=== PATIENT | female | born 2000 | race Caucasian/White ===

== ENCOUNTER 2018-01-20 06:56 | Emergency (ER) | payer SELFPAY ==
[2018-01-20] MEDS ORDERED: Sodium Chloride 0.9% 1,000 ML IV ONE (07:33)
[2018-01-20] MEDS ORDERED: Sodium Chloride 0.9% 2.5 ML Syringe FLUSH PRN (07:33)
[2018-01-20] MEDS ORDERED: Sodium Chloride 0.9% 10 ML Syringe FLUSH PRN (07:33)
[2018-01-20] MEDS ORDERED: Ondansetron 4 MG/2 ML SDV IVPUSH ONE (07:33)
--- NOTE | 2018-01-20 07:50 | EDM.PDOC ---
ED HPI GENERAL MEDICAL PROBLEM - General Chief Complaint: Abdominal Pain Stated Complaint: STOMACH PAINS Time Seen by Provider: 01/20/18 07:29 - History of Present Illness INITIAL COMMENTS - FREE TEXT/NARRATIVE: HISTORY AND PHYSICAL: History of present illness: Patient's 17-year-old female presents with concern of abdominal pain nausea and vomiting this is in her epigastrium right upper quadrant and started this morning she denies fever chills denies chest pain cough shortness of breath diarrhea denies vaginal discharge or irregular bleeding denies similar episodes prior Review of systems: As per history of present illness and below otherwise all systems reviewed and negative. Past medical history: As per history of present illness and as reviewed below otherwise noncontributory. Surgical history: As per history of present illness and as reviewed below otherwise noncontributory. Social history: No reported history of drug or alcohol abuse. Family history: As per history of present illness and as reviewed below otherwise noncontributory. Physical exam: HEENT: Atraumatic, normocephalic, pupils reactive, negative for conjunctival pallor or scleral icterus, mucous membranes dry, throat clear, neck supple, nontender, trachea midline. Lungs: Clear to auscultation, breath sounds equal bilaterally, chest nontender. Heart: S1S2, regular, negative for clicks, rubs, or JVD. Abdomen: Soft, nondistended, mild tenderness in epigastric right upper quadrant no rebound no guarding Negative for masses or hepatosplenomegaly. Negative for costovertebral tenderness. Pelvis: Stable nontender. Genitourinary: Deferred. Rectal: Deferred. Extremities: Atraumatic, negative for cords or calf pain. Neurovascular unremarkable. Neuro: Awake, alert, oriented. Cranial nerves II through XII unremarkable. Cerebellum unremarkable. Motor and sensory unremarkable throughout. Exam nonfocal. Diagnostics: CBC CMP and lipase hCG UA ultrasound right upper quadrant influenza screen Therapeutics: Saline 1 L bolus Zofran 4 mg IV Impression: #1 upper abdominal pain with vomiting #2 mild dehydration Definitive disposition and diagnosis as appropriate pending reevaluation and review of above. abdominal Pain Score (Numeric/FACES): 5 - Related Data Allergies Allergy/AdvReac Type Severity Reaction Status Date / Time No Known Allergies Allergy Verified 01/20/18 07:23 Home Meds: Home Meds . [No Known Home Meds] 01/20/18 [History] Past Medical History - Past Health History Medical/Surgical History: Denies Medical/Surgical History Social & Family History - Family History Family Medical History: Noncontributory - Tobacco Use Smoking Status *Q: Never Smoker Second Hand Smoke Exposure: No - Caffeine Use Caffeine Use: Reports: Energy Drinks - Recreational Drug Use Recreational Drug Use: No ED ROS GENERAL - Review of Systems Review Of Systems: ROS reveals no pertinent complaints other than HPI. ED EXAM, GENERAL - Physical Exam Exam: See Below (See dictation) Course - Vital Signs Last Recorded V/S: Last Vital Signs Temp 36.5 C 01/20/18 08:55 Pulse 61 01/20/18 08:55 Resp 16 01/20/18 08:55 BP 118/63 01/20/18 08:55 Pulse Ox 97 01/20/18 08:55 - Orders/Labs/Meds Orders: Active Orders 24 hr Category Date Time Status Abdomen Ltd [US] Stat Exams 01/20/18 07:33 Taken INFLUENZA A+B AG SCREEN [RM] Stat Lab 01/20/18 07:46 Ordered UA W/MICROSCOPIC [URIN] Stat Lab 01/20/18 08:31 Ordered Sodium Chloride 0.9% [Saline Flush] Med 01/20/18 07:33 Active 10 ml FLUSH ASDIRECTED PRN Sodium Chloride 0.9% [Saline Flush] Med 01/20/18 07:33 Active 2.5 ml FLUSH ASDIRECTED PRN Saline Lock Insert [OM.PC] Stat Oth 01/20/18 07:31 Ordered Medication Orders Sodium Chloride (Saline Flush) 10 ml FLUSH ASDIRECTED PRN PRN Reason: Keep Vein Open Sodium Chloride (Saline Flush) 2.5 ml FLUSH ASDIRECTED PRN PRN Reason: Keep Vein Open Labs: Laboratory Tests 01/20/18 01/20/18 01/20/18 Range/Units 07:40 07:40 07:40 WBC 11.07 H (4.0-11.0) K/uL RBC 4.69 (4.30-5.90) M/uL Hgb 13.4 (12.0-16.0) g/dL Hct 41.1 (36.0-46.0) % MCV 87.6 (80.0-98.0) fL MCH 28.6 (27.0-32.0) pg MCHC 32.6 (31.0-37.0) g/dL RDW Std Deviation 40.5 (28.0-62.0) fl RDW Coeff of Nick 13 (11.0-15.0) % Plt Count 313 (150-400) K/uL MPV 9.30 (7.40-12.00) fL Neut % (Auto) 76.9 (48.0-80.0) % Lymph % (Auto) 12.1 L (16.0-40.0) % [place] % (Auto) 9.8 (0.0-15.0) % Eos % (Auto) 0.9 (0.0-7.0) % Baso % (Auto) 0.3 (0.0-1.5) % Neut # (Auto) 8.5 H (1.4-5.7) K/uL Lymph # (Auto) 1.3 (0.6-2.4) K/uL [place] # (Auto) 1.1 H (0.0-0.8) K/uL Eos # (Auto) 0.1 (0.0-0.7) K/uL Baso # (Auto) 0.0 (0.0-0.1) K/uL Nucleated RBC % 0.0 /100WBC Nucleated RBCs # 0 K/uL INR 0.97 Sodium 141 (136-145) mmol/L Potassium 3.5 (3.5-5.1) mmol/L Chloride 105 (98-107) mmol/L Carbon Dioxide 25.2 (21.0-32.0) mmol/L BUN 16 (7.0-18.0) mg/dL Creatinine 1.3 H (0.6-1.0) mg/dL Est Cr Clr Drug Dosing 57.58 mL/min Estimated GFR (MDRD) 52.8 ml/min Glucose 107 H (74-106) mg/dL Calcium 8.8 (8.5-10.1) mg/dL Total Bilirubin 0.3 (0.2-1.0) mg/dL AST 21 (15-37) IU/L ALT 19 (14-63) IU/L Alkaline Phosphatase 86 (46-116) U/L Total Protein 7.3 (6.4-8.2) g/dL Albumin 3.7 (3.4-5.0) g/dL Globulin 3.6 H (2.0-3.5) g/dL Albumin/Globulin Ratio 1.0 L (1.3-2.8) Lipase 124 (73-393) U/L HCG, Qual (NEG) Urine Color Urine Appearance Urine pH (5.0-8.0) Ur Specific [place] (1.001-1.035) Urine Protein (NEGATIVE) mg/dL Urine Glucose (UA) (NEGATIVE) mg/dL Urine Ketones (NEGATIVE) mg/dL Urine Occult Blood (NEGATIVE) Urine Nitrite (NEGATIVE) Urine Bilirubin (NEGATIVE) Urine Urobilinogen (<2.0) EU/dL Ur Leukocyte Esterase (NEGATIVE) Urine RBC (0-2/HPF) Urine WBC (0-5/HPF) Ur Epithelial Cells (NONE-FEW) Urine Bacteria (NEGATIVE) 01/20/18 01/20/18 Range/Units 07:40 08:31 WBC (4.0-11.0) K/uL RBC (4.30-5.90) M/uL Hgb (12.0-16.0) g/dL Hct (36.0-46.0) % MCV (80.0-98.0) fL MCH (27.0-32.0) pg MCHC (31.0-37.0) g/dL RDW Std Deviation (28.0-62.0) fl RDW Coeff of Nick (11.0-15.0) % Plt Count (150-400) K/uL MPV (7.40-12.00) fL Neut % (Auto) (48.0-80.0) % Lymph % (Auto) (16.0-40.0) % [place] % (Auto) (0.0-15.0) % Eos % (Auto) (0.0-7.0) % Baso % (Auto) (0.0-1.5) % Neut # (Auto) (1.4-5.7) K/uL Lymph # (Auto) (0.6-2.4) K/uL [place] # (Auto) (0.0-0.8) K/uL Eos # (Auto) (0.0-0.7) K/uL Baso # (Auto) (0.0-0.1) K/uL Nucleated RBC % /100WBC Nucleated RBCs # K/uL INR Sodium (136-145) mmol/L Potassium (3.5-5.1) mmol/L Chloride (98-107) mmol/L Carbon Dioxide (21.0-32.0) mmol/L BUN (7.0-18.0) mg/dL Creatinine (0.6-1.0) mg/dL Est Cr Clr Drug Dosing mL/min Estimated GFR (MDRD) ml/min Glucose (74-106) mg/dL Calcium (8.5-10.1) mg/dL Total Bilirubin (0.2-1.0) mg/dL AST (15-37) IU/L ALT (14-63) IU/L Alkaline Phosphatase (46-116) U/L Total Protein (6.4-8.2) g/dL Albumin (3.4-5.0) g/dL Globulin (2.0-3.5) g/dL Albumin/Globulin Ratio (1.3-2.8) Lipase (73-393) U/L HCG, Qual NEGATIVE (NEG) Urine Color YELLOW Urine Appearance CLEAR Urine pH 5.5 (5.0-8.0) Ur Specific [place] <= 1.005 (1.001-1.035) Urine Protein NEGATIVE (NEGATIVE) mg/dL Urine Glucose (UA) NEGATIVE (NEGATIVE) mg/dL Urine Ketones NEGATIVE (NEGATIVE) mg/dL Urine Occult Blood TRACE-INTACT (NEGATIVE) Urine Nitrite POSITIVE H (NEGATIVE) Urine Bilirubin NEGATIVE (NEGATIVE) Urine Urobilinogen 0.2 (<2.0) EU/dL Ur Leukocyte Esterase NEGATIVE (NEGATIVE) Urine RBC 0-1 (0-2/HPF) Urine WBC 0-1 (0-5/HPF) Ur Epithelial Cells OCCASIONAL (NONE-FEW) Urine Bacteria RARE (NEGATIVE) Meds: Medications Generic Name Dose Route Start Last Admin Trade Name Freq PRN Reason Stop Dose Admin Sodium Chloride 10 ml 01/20/18 07:33 Saline Flush FLUSH ASDIRECTED PRN Keep Vein Open Sodium Chloride 2.5 ml 01/20/18 07:33 Saline Flush FLUSH ASDIRECTED PRN Keep Vein Open Discontinued Medications Generic Name Dose Route Start Last Admin Trade Name Freq PRN Reason Stop Dose Admin Sodium Chloride 1,000 mls @ 999 mls/hr 01/20/18 07:33 01/20/18 07:43 Normal Saline IV 01/20/18 08:33 999 mls/hr STAT ONE Administration Ondansetron HCl 4 mg 01/20/18 07:33 01/20/18 07:43 Zofran IVPUSH 01/20/18 07:34 4 mg ONETIME ONE Administration Departure - Departure Time of Disposition: 09:14 Disposition: Home, Self-Care 01 Condition: Good Clinical Impression: Abdominal pain, Vomiting - Discharge Information Referrals: PCP,None [Primary Care Provider] - Forms: ED Department Discharge Additional Instructions: The following information is given to patients seen in the emergency department who are being discharged to home. This information is to outline your options for follow-up care. We provide all patients seen in our emergency department with a follow-up referral. The need for follow-up, as well as the timing and circumstances, are variable depending upon the specifics of your emergency department visit. If you don't have a primary care physician on staff, we will provide you with a referral. We always advise you to contact your personal physician following an emergency department visit to inform them of the circumstance of the visit and for follow-up with them and/or the need for any referrals to a consulting specialist. The emergency department will also refer you to a specialist when appropriate. This referral assures that you have the opportunity for followup care with a specialist. All of these measure are taken in an effort to provide you with optimal care, which includes your followup. Under all circumstances we always encourage you to contact your private physician who remains a resource for coordinating your care. When calling for followup care, please make the office aware that this follow-up is from your recent emergency room visit. If for any reason you are refused follow-up, please contact the [facility] emergency department at and asked to speak to the emergency department charge nurse. [facility] [address] [place] [id number] Zofran as prescribed push fluids clear liquids 24 hours avoid dairy 72 hours return as needed as discussed[] - My Orders Last 24 Hours: My Active Orders 01/20/18 07:31 Saline Lock Insert [OM.PC] Stat 01/20/18 07:33 Abdomen Ltd [US] Stat Sodium Chloride 0.9% [Saline Flush] 10 ml FLUSH ASDIRECTED PRN Sodium Chloride 0.9% [Saline Flush] 2.5 ml FLUSH ASDIRECTED PRN 01/20/18 07:46 INFLUENZA A+B AG SCREEN [RM] Stat 01/20/18 08:31 UA W/MICROSCOPIC [URIN] Stat - Assessment/Plan Last 24 Hours: My Active Orders 01/20/18 07:31 Saline Lock Insert [OM.PC] Stat 01/20/18 07:33 Abdomen Ltd [US] Stat Sodium Chloride 0.9% [Saline Flush] 10 ml FLUSH ASDIRECTED PRN Sodium Chloride 0.9% [Saline Flush] 2.5 ml FLUSH ASDIRECTED PRN 01/20/18 07:46 INFLUENZA A+B AG SCREEN [RM] Stat 01/20/18 08:31 UA W/MICROSCOPIC [URIN] Stat
--- NOTE | 2018-01-20 15:42 | US ---
EXAM DATE: 01/20/18 PATIENT'S AGE: 17 Patient: VINICIO BAEZ Facility: [place], [place] Site . Site : 2000 Study: US Abdomen [id number]/9/2018 8:08:19 AM Ordering Physician: Keena Irizarry Final Report: INDICATION: ABDOMINAL CRAMPING FINDINGS: An abdominal ultrasound shows normal size, contour, and echogenicity of the liver. No bile duct dilation with the common bile duct measuring 3 mm. Normal appearance of the gallbladder. No gallstones. No abnormalities identified in the visualized portions of the pancreatic head and body and right kidney. No right-sided hydronephrosis. IMPRESSION: No abnormalities of the right upper quadrant identified. No gallstones. Dictated by Emory Weems MD @ 01/20/2018 8:22:14 AM Dictated by: Emory Weems MD @ 01/20/2018 08:22:20 (Electronic Signature) Report Signed by Proxy. AVIVA
== END 2018-01-20 09:32 | disposition home or self-care (01) ==
LOC: MW.ED 06:56
DX: R11.2 Nausea with vomiting, unspecified (principal); R10.9 Unspecified abdominal pain; E86.0 Dehydration
CPT/HCPCS: 36415; 76705; 80053; 81001; 83690; 84703; 85025; 85610; 87804; 96361; 96374; 99284; J2405; J7040; 99283

== ENCOUNTER 2021-06-21 19:44 | Inpatient (IN) | payer MEDICAID, OTHER ==
[2021-06-21] MEDS ORDERED: Acetaminophen 325 MG Tab PO PRN (20:39)
[2021-06-21] MEDS ORDERED: Terbutaline 1 MG/ML SDV SUBCUT PRN (20:39)
[2021-06-21] MEDS ORDERED: Butorphanol 1 MG/ML SDV IVPUSH PRN (20:42)
[2021-06-21] MEDS ORDERED: Carboprost Tromethamine 250 MCG/1 ML Amp IM PRN (20:42)
[2021-06-21] MEDS ORDERED: Sodium Chloride 0.9% 10 ML Syringe FLUSH PRN (20:42)
[2021-06-21] MEDS ORDERED: Methylergonovine 0.2 MG/1 ML Amp IM PRN (20:42)
[2021-06-21] MEDS ORDERED: Misoprostol 200 MCG Tab PO PRN (20:42)
[2021-06-21] MEDS ORDERED: Water For Irrigation,Sterile 1,000 ML Container IRR PRN (20:42)
[2021-06-21] MEDS ORDERED: Sodium Chloride 0.9% 2.5 ML Syringe FLUSH PRN (20:42)
[2021-06-21] MEDS ORDERED: Tranexamic Acid 1,000 MG in Sodium Chloride 0.9% 100 ML IV PRN (20:42)
[2021-06-21] MEDS ORDERED: Nalbuphine 10 MG/1 ML Vial IVPUSH PRN (20:42)
[2021-06-21] MEDS ORDERED: Sodium Chloride 0.9% 10 ML SDV IV PRN (20:42)
[2021-06-21] MEDS ORDERED: Lidocaine 1% 50 ML MDV INJECT PRN (20:42)
[2021-06-21] MEDS ORDERED: Ondansetron 4 MG/2 ML SDV IVPUSH PRN (20:42)
[2021-06-21] MEDS ORDERED: Oxytocin/0.9 % Sodium Chloride 30 UNIT/500 ML BAG IV SCH ×2 (20:45)
[2021-06-21] MEDS: Lactated Ringers 1,000 ML IV SCH ×2 (20:45→21:46)
[2021-06-21] MEDS ORDERED: Ropivacaine HCl/PF 200 ML ONE (21:59)
--- NOTE | 2021-06-21 22:28 | PCM.PREANE ---
Preanesthetic Assessment - Anesthesia/Transfusion/Family Hx Anesthesia History: Prior Anesthesia Without Reaction Family History of Anesthesia Reaction: No - Review of Systems General: No Symptoms Pulmonary: No Symptoms Cardiovascular: No Symptoms Gastrointestinal: No Symptoms Neurological: No Symptoms Other: Reports: None - Physical Assessment ASA Class: 2 Mental Status: Alert & Oriented x3 Airway Class: Mallampati = 3 Dentition: Reports: Normal Dentition ROM/Head Extension: Full Lungs: Clear to Auscultation, Normal Respiratory Effort Cardiovascular: Regular Rate, Regular Rhythm - Lab Values: Laboratory Last Values WBC 18.66 K/uL (4.0-11.0) H 06/21/21 20:20 RBC 4.50 M/uL (4.30-5.90) 06/21/21 20:20 Hgb 13.7 g/dL (12.0-16.0) 06/21/21 20:20 Hct 39.5 % (36.0-46.0) 06/21/21 20:20 MCV 87.8 fL (80.0-98.0) 06/21/21 20:20 MCH 30.4 pg (27.0-32.0) 06/21/21 20:20 MCHC 34.7 g/dL (31.0-37.0) 06/21/21 20:20 RDW Std Deviation 41.8 fl (28.0-62.0) 06/21/21 20:20 RDW Coeff of Nick 13 % (11.0-15.0) 06/21/21 20:20 Plt Count 285 K/uL (150-400) 06/21/21 20:20 MPV 11.70 fL (7.40-12.00) 06/21/21 20:20 Nucleated RBC % 0.0 /100WBC 06/21/21 20:20 Nucleated RBCs # 0 K/uL 06/21/21 20:20 SARS-CoV-2 RNA (VIVIANE) NEGATIVE (NEGATIVE) 06/21/21 20:21 Blood Type O POSITIVE 06/21/21 20:20 Antibody Screen NEGATIVE 06/21/21 20:20 - Allergies Allergies/Adverse Reactions: Allergies Allergy/AdvReac Type Severity Reaction Status Date / Time No Known Allergies Allergy Verified 05/07/18 17:11 - Blood Blood Available: Yes Product(s) Available: PRBC, FFP, Platelets - Anesthesia Plan Pre-Op Medication Ordered: None - Acknowledgements Anesthesia Type Planned: Epidural Pt an Appropriate Candidate for the Planned Anesthesia: Yes Alternatives and Risks of Anesthesia Discussed w Pt/Guardian: Yes Pt/Guardian Understands and Agrees with Anesthesia Plan: Yes PreAnesthesia Questionnaire - Past Health History Medical/Surgical History: Denies Medical/Surgical History - HOME MEDS Home Medications: Home Meds . [No Known Home Meds] 01/20/18 [History] - CURRENT (IN HOUSE) MEDS Current Meds: Current Medications Acetaminophen (Acetaminophen 325 Mg Tab) 650 mg PO Q4H PRN PRN Reason: Headache Butorphanol Tartrate (Butorphanol 1 Mg/Ml Sdv) 1 mg IVPUSH Q1H PRN PRN Reason: Pain (severe 7-10) Carboprost Tromethamine (Carboprost Tromethamine 250 Mcg/1 Ml Amp) 250 mcg IM ASDIRECTED PRN PRN Reason: Post Hemorrhage Oxytocin/Sodium Chloride (Oxytocin 30 Unit/500 Ml-Ns) 30 unit in 500 mls @ 2 mls/hr IV TITRATE TERI; Protocol Lactated Ringer's (Ringers, Lactated) 1,000 mls @ 150 mls/hr IV ASDIRECTED TERI Last Admin: 06/21/21 21:46 Dose: 999 mls/hr Documented by: Oxytocin/Sodium Chloride (Oxytocin 30 Unit/500 Ml-Ns) 30 unit in 500 mls @ 500 mls/hr IV TITRATE TERI Tranexamic Acid 1,000 mg/ (Sodium Chloride) 110 mls @ 660 mls/hr IV ONETIME PRN PRN Reason: Bleeding Lidocaine HCl (Lidocaine 1% 50 Ml Mdv) 50 ml INJECT ONETIME PRN PRN Reason: Laceration repair Methylergonovine Maleate (Methylergonovine 0.2 Mg/1 Ml Amp) 0.2 mg IM ASDIRECTED PRN PRN Reason: Post Hemorrhage Misoprostol (Misoprostol 200 Mcg Tab) 200 mcg PO ONETIME PRN PRN Reason: Post Hemorrhage Nalbuphine HCl (Nalbuphine 10 Mg/1 Ml Vial) 10 mg IVPUSH Q1H PRN PRN Reason: Pain (severe 7-10) Ondansetron HCl (Ondansetron 4 Mg/2 Ml Sdv) 4 mg IVPUSH Q4H PRN PRN Reason: Nausea/Vomiting Sodium Chloride (Sodium Chloride 0.9% 10 Ml Syringe) 10 ml FLUSH ASDIRECTED PRN PRN Reason: Keep Vein Open Sodium Chloride (Sodium Chloride 0.9% 2.5 Ml Syringe) 2.5 ml FLUSH ASDIRECTED PRN PRN Reason: Keep Vein Open Sodium Chloride (Sodium Chloride 0.9% 10 Ml Sdv) 10 ml IV ASDIRECTED PRN PRN Reason: IV Use Sterile Water (Water For Irrigation,Sterile 1,000 Ml Container) 1,000 ml IRR ASDIRECTED PRN PRN Reason: delivery Terbutaline Sulfate (Terbutaline 1 Mg/Ml Sdv) 0.25 mg SUBCUT ASDIRECTED PRN PRN Reason: Tacysystole Discontinued Medications Ropivacaine (Naropin 0.2%) Confirm Administered Dose 200 mls @ as directed .ROUTE .[employer]-MED ONE Stop: 06/21/21 22:00 - Pre-Procedure Checklist Attending Provider Aware: Yes Chart Reviewed: Yes Consent Signed: Yes Labs Reviewed: Yes VS/FHR Reviewed: Yes Patient Identification Confirmation Method: Reports: Verbal Patient Pt an Appropriate Candidate for the Planned Anesthesia: Yes Alternatives and Risks of Anesthesia Discussed w Pt/Guardian: Yes - Procedure Procedure Start Date: 06/21/21 Procedure Start Time: 22:[address]: Reports: Blood Pressure, Heart Rate, SPO2 Functional IV: Yes Safety Measures: Reports: Patient Identified, Procedure Verified, Site Verified, Procedure Time Out Patient Position: Reports: Sitting Prep: Reports: Betadine x3, Sterile Drape Local Anesthetic: Reports: Intradermal Wheal w Lidocaine 1% Regional Placement Level: Reports: L3-4 Needle: Reports: 17 g Touhy Approach: Reports: Midline Technique: Reports: ABISAI Plastic Syringe Parasthesia: Reports: None Test Dose Time: 22:08 Test Dose Medication: Reports: Lidocaine 1.5% w Epinephrine 1:200,000 Test Dose Response: Reports: Negative Loading Dose Time: 22:07 Loading Dose Medication: bupivicaine 0.25% 10cc Loading Dose Patient Position: sitting Continuous Infusion Start Time: 22:10 Continuous Infusion Medication: ropivicaine 0.2% Continuous Infusion Rate: 16 Continuous Infusion PCS Bolus Option: 4 Continuous Infusion Lockout Dose (cc/hr): 28 Patient Position Post Placement: Reports: Supline/PATRICIA VS and FHR Monitored in Unit Post Placement: Yes Procedure End Date: 06/21/21 Procedure End Time: 23:05
--- NOTE | 2021-06-21 22:29 | PCM.POSTAN ---
POST ANESTHESIA ASSESSMENT - MENTAL STATUS Mental Status: Alert, Oriented - RESPIRATORY Respiratory Status: Respiratory Rate WNL, Airway Patent, O2 Saturation Stable - CARDIOVASCULAR CV Status: Pulse Rate WNL, Blood Pressure Stable - GASTROINTESTINAL GI Status: No Symptoms - POST OP HYDRATION Hydration Status: Adequate & Stable
[2021-06-22] MEDS ORDERED: Acetaminophen 500 MG Tab PO ONE (08:10)
[2021-06-22] MEDS: Lactated Ringers 1,000 ML IV SCH (10:10)
[2021-06-22] MEDS ORDERED: Lanolin 100% Cream 7 GM Tube TOP PRN (12:24)
[2021-06-22] MEDS ORDERED: Acetaminophen 500 MG Tab PO PRN ×2 (12:24)
[2021-06-22] MEDS ORDERED: oxyCODONE 5 MG Tab PO PRN (12:24)
[2021-06-22] MEDS ORDERED: Bisacodyl 10 MG Supp RECTAL PRN (12:24)
[2021-06-22] MEDS ORDERED: Docusate Sodium 100 MG Cap PO PRN (12:24)
[2021-06-22] MEDS ORDERED: Benzocaine/Menthol 20%-0.5% Spray 78 GM Cannister TOP PRN (12:24)
[2021-06-22] MEDS ORDERED: Ibuprofen 400 MG Tab PO PRN (12:24)
[2021-06-22] MEDS ORDERED: Witch Hazel Medicated Pads 40/Jar TOP PRN (12:24)
[2021-06-22] MEDS ORDERED: Ibuprofen 800 MG Tab PO PRN (12:24)
--- NOTE | 2021-06-22 12:32 | PCM.DEL ---
L & D Note - General Info Date of Service: 06/22/21 Mother's Due Date: 06/29/21 - Delivery Note Labor: Spontaneous, Augmented by Oxytocin Delivery Outcome: Livebirth Infant Delivery Method: Spontaneous Vaginal Delivery-Single Presentation: Right Occiput Posterior (ROP) Nuchal Cord: Present, Reduced Anesthesia Type: Epidural Anesthetic: Lidocaine (Xylocaine) 1% Plain Amniotic Fluid Description: Clear Episiotomy Type: Midline Laceration: 2nd Degree Placenta: Intact, Spontaneous Cord: 3 Vessels Estimated Blood Loss: 300 Resuscitation Needed: No [place]: Bulb Syringe Score 1 min: 8 Score 5 min: 9 - General Info Date of Service: 06/22/21 - Patient Data Weight - Most Recent: 92.986 kg I&O - Last 24 Hours: Intake & Output 06/21/21 06/22/21 06/22/21 22:59 06:59 14:59 Intake Total 1000 Balance 1000 Lab Results Last 24 Hours: Laboratory Results - last 24 hr 06/21/21 06/21/21 06/21/21 Range/Units 20:20 20:20 20:21 WBC 18.66 H (4.0-11.0) K/uL RBC 4.50 (4.30-5.90) M/uL Hgb 13.7 (12.0-16.0) g/dL Hct 39.5 (36.0-46.0) % MCV 87.8 (80.0-98.0) fL MCH 30.4 (27.0-32.0) pg MCHC 34.7 (31.0-37.0) g/dL RDW Std Deviation 41.8 (28.0-62.0) fl RDW Coeff of Nick 13 (11.0-15.0) % Plt Count 285 (150-400) K/uL MPV 11.70 (7.40-12.00) fL Nucleated RBC % 0.0 /100WBC Nucleated RBCs # 0 K/uL SARS-CoV-2 RNA (VIVIANE) NEGATIVE (NEGATIVE) Blood Type O POSITIVE Antibody Screen NEGATIVE Med Orders - Current: Current Medications Acetaminophen (Acetaminophen 325 Mg Tab) 650 mg PO Q4H PRN PRN Reason: Headache Carboprost Tromethamine (Carboprost Tromethamine 250 Mcg/1 Ml Amp) 250 mcg IM ASDIRECTED PRN PRN Reason: Post Hemorrhage Oxytocin/Sodium Chloride (Oxytocin 30 Unit/500 Ml-Ns) 30 unit in 500 mls @ 2 mls/hr IV TITRATE TERI; Protocol Last Titration: 06/22/21 12:00 Dose: 999 munits/min, 999 mls/hr Documented by: Lactated Ringer's (Ringers, Lactated) 1,000 mls @ 150 mls/hr IV ASDIRECTED TERI Last Admin: 06/22/21 10:10 Dose: 150 mls/hr Documented by: Tranexamic Acid 1,000 mg/ (Sodium Chloride) 110 mls @ 660 mls/hr IV ONETIME PRN PRN Reason: Bleeding Lidocaine HCl (Lidocaine 1% 50 Ml Mdv) 50 ml INJECT ONETIME PRN PRN Reason: Laceration repair Last Admin: 06/22/21 12:10 Dose: 50 ml Documented by: Methylergonovine Maleate (Methylergonovine 0.2 Mg/1 Ml Amp) 0.2 mg IM ASDIRECTED PRN PRN Reason: Post Hemorrhage Nalbuphine HCl (Nalbuphine 10 Mg/1 Ml Vial) 10 mg IVPUSH Q1H PRN PRN Reason: Pain (severe 7-10) Ondansetron HCl (Ondansetron 4 Mg/2 Ml Sdv) 4 mg IVPUSH Q4H PRN PRN Reason: Nausea/Vomiting Sodium Chloride (Sodium Chloride 0.9% 10 Ml Syringe) 10 ml FLUSH ASDIRECTED PRN PRN Reason: Keep Vein Open Sodium Chloride (Sodium Chloride 0.9% 2.5 Ml Syringe) 2.5 ml FLUSH ASDIRECTED PRN PRN Reason: Keep Vein Open Sodium Chloride (Sodium Chloride 0.9% 10 Ml Sdv) 10 ml IV ASDIRECTED PRN PRN Reason: IV Use Sterile Water (Water For Irrigation,Sterile 1,000 Ml Container) 1,000 ml IRR ASDIRECTED PRN PRN Reason: delivery Last Admin: 06/22/21 12:10 Dose: 1,000 ml Documented by: Terbutaline Sulfate (Terbutaline 1 Mg/Ml Sdv) 0.25 mg SUBCUT ASDIRECTED PRN PRN Reason: Tacysystole Discontinued Medications Acetaminophen (Acetaminophen 500 Mg Tab) 1,000 mg PO ONETIME ONE Stop: 06/22/21 08:11 Last Admin: 06/22/21 08:26 Dose: 1,000 mg Documented by: Butorphanol Tartrate (Butorphanol 1 Mg/Ml Sdv) 1 mg IVPUSH Q1H PRN PRN Reason: Pain (severe 7-10) Oxytocin/Sodium Chloride (Oxytocin 30 Unit/500 Ml-Ns) 30 unit in 500 mls @ 500 mls/hr IV TITRATE TERI Ropivacaine (Naropin 0.2%) Confirm Administered Dose 200 mls @ as directed .ROUTE .STK-MED ONE Stop: 06/21/21 22:00 Misoprostol (Misoprostol 200 Mcg Tab) 200 mcg PO ONETIME PRN PRN Reason: Post Hemorrhage - Exam Urinary Catheter Total Time: 0Days 0Hours - Problem List Review Problem List Initiated/Reviewed/Updated: Yes - Assessment Assessment:: 20-year-old with spontaneous rupture of membranes delivered vaginally under epidural anesthesia. There was nuchal cord x2. Viable male. Apgars 8 and 9, weight 2950 grams. Blood type O+, antibody negative, Rubella immune, GBS negative. Plans to breastfeed - Plan Plan:: - Routine post care - Tylenol/aspirin for pain
--- NOTE | 2021-06-22 15:24 | OR ---
SURGEON: Riana Cooley M.D. DATE OF PROCEDURE: 06/22/2021 PREOPERATIVE DIAGNOSES: 1. A 39-week intrauterine . 2. Spontaneous rupture of membranes. POSTOPERATIVE DIAGNOSES: 1. A 39-week intrauterine . 2. Spontaneous rupture of membranes. PROCEDURES: Spontaneous vaginal delivery, second-degree midline laceration repaired. PRIMARY SURGEON: Riana Cooley M.D. ANESTHESIA: Epidural. ESTIMATED BLOOD LOSS: 300 mL. COMPLICATIONS: None known. FINDINGS: Viable male. scores 8 at one minute, 9 at five minutes. Weight is pending. Spontaneous delivery, intact placenta, three-vessel cord, and double nuchal cord noted and was reduced manually. DISPOSITION: to nursery, mom in LDRP, stable. PROCEDURE IN DETAIL: Mariella is a 20-year-old, G1, P0 at 39 weeks' gestational age who presents in the [facility] statistical programmer of 06/22/2021 with spontaneous rupture of membranes. She is group B beta strep negative. She is having regular contractions, was admitted. Routine labs were drawn and was monitored. She became increasingly uncomfortable, underwent regional anesthesia in the form of epidural, and became more comfortable. Shortly after 9 p.m., she was found to be complete, 100% effaced, +1 station, began pushing efforts, and pushed but contractions were spacing apart. At this point, they were every 4 to 6 minutes. Therefore, did augment with Pitocin. Contractions became increasingly stronger and occurring every 1 to 2 minutes and had nice results with pushing efforts, pushed to a +3 station. I was called for delivery. Upon my arrival, the patient was placed in modified dorsal lithotomy position, was prepped and draped in the usual aseptic manner. Continued with pushing efforts, was able to deliver infant's head atraumatically spontaneously in direct OP position followed by anterior shoulder, posterior shoulder, and remainder of body without difficulty. There was a nuchal cord x2 noted. This was reduced manually. Infant's oropharynx and nares were bulb suctioned. was handed off to his mother with attending nursing staff at her side. After a delay, cord was clamped x2 and cut. Cord arterial, cord venous, and cord blood sampling were obtained. Light pressure was applied while the placenta was delivered spontaneously intact. Vigorous fundal uterine massage was then applied while 30 units of Pitocin was delivered in 500 mL of IV fluid. Upon inspection of cervix, vaginal sidewalls, and perineum, there was found to be a second-degree midline laceration. This region was prepped with approximately 8 mL of 1% lidocaine and then repaired in the usual fashion using 3-0 Vicryl. Sponge, instrument, and needle counts were correct. The patient remained in LDRP. Uterus was firm. Hemostasis evident. VENKATA / EDILBERTO /[id number]
--- NOTE | 2021-06-23 07:08 | PCM.PNPP ---
<Vidya Bonilla - Last Filed: 06/23/21 07:41> - General Info Date of Service: 06/23/21 Admission Dx/Problem (Free Text): Spontaneous Labor Subjective Update: Appears to be doing well. No concerns. Ambulating, urinating, , and tolerating food well. Describes heavy vaginal discharge, but unclear how many pads used. hbg 11.7 down from 13.7, asymptomatic. - Review of Systems General: Reports: No Symptoms HEENT: Reports: No Symptoms Pulmonary: Reports: No Symptoms Cardiovascular: Reports: No Symptoms Gastrointestinal: Reports: No Symptoms Genitourinary: Reports: Pain (Some pain with urination) Musculoskeletal: Reports: No Symptoms Skin: Reports: No Symptoms Neurological: Reports: No Symptoms Psychiatric: Reports: No Symptoms - General Info Date of Service: 06/23/21 - Patient Data Vital Signs - Most Recent: Last Vital Signs Temp 36.9 C 06/22/21 20:00 Pulse 108 H 06/22/21 20:00 Resp 19 06/22/21 20:00 BP 124/76 06/22/21 20:00 Pulse Ox 98 06/22/21 20:00 Weight - Most Recent: 92.986 kg Lab Results - Last 24 Hours: Laboratory Results - last 24 hr 06/22/21 06/23/21 Range/Units 11:59 04:50 Hgb 11.7 L (12.0-16.0) g/dL Hct 35.7 L (36.0-46.0) % Cord ABG pH 7.174 L (7.18-7.38) Cord ABG Base Excess -9 (-10--2) Cord VBG pH 7.244 L (7.25-7.45) Cord VBG Base Excess -11 L (-10--2) Med Orders - Current: Current Medications Acetaminophen (Acetaminophen 325 Mg Tab) 650 mg PO Q4H PRN PRN Reason: Headache Acetaminophen (Acetaminophen 500 Mg Tab) 500 mg PO Q4H PRN PRN Reason: Pain (mild 1-3) Acetaminophen (Acetaminophen 500 Mg Tab) 1,000 mg PO Q4H PRN PRN Reason: Pain (mild 1-3) Benzocaine/Menthol (Benzocaine/Menthol 20%-0.5% [place] 78 Gm Cannister) 78 gm TOP ASDIRECTED PRN PRN Reason: Perineal Comfort Measure Last Admin: 06/22/21 12:52 Dose: 1 can Documented by: Bisacodyl (Bisacodyl 10 Mg Supp) 10 mg RECTAL ONETIME PRN PRN Reason: Constipation Carboprost Tromethamine (Carboprost Tromethamine 250 Mcg/1 Ml Amp) 250 mcg IM ASDIRECTED PRN PRN Reason: Post Hemorrhage Docusate Sodium (Docusate Sodium 100 Mg Cap) 100 mg PO Q12H PRN PRN Reason: Constipation Emollient Ointment (Lanolin 100% Cream 7 Gm Tube) 0 gm TOP ASDIRECTED PRN PRN Reason: Sore Nipples Oxytocin/Sodium Chloride (Oxytocin 30 Unit/500 Ml-Ns) 30 unit in 500 mls @ 2 mls/hr IV TITRATE TERI; Protocol Last Titration: 06/22/21 12:00 Dose: 999 munits/min, 999 mls/hr Documented by: Lactated Ringer's (Ringers, Lactated) 1,000 mls @ 150 mls/hr IV ASDIRECTED TERI Last Admin: 06/22/21 10:10 Dose: 150 mls/hr Documented by: Tranexamic Acid 1,000 mg/ (Sodium Chloride) 110 mls @ 660 mls/hr IV ONETIME PRN PRN Reason: Bleeding Ibuprofen (Ibuprofen 400 Mg Tab) 400 mg PO Q4H PRN PRN Reason: Pain (mild 1-3) Ibuprofen (Ibuprofen 800 Mg Tab) 800 mg PO Q6H PRN PRN Reason: Pain (mild 1-3) Last Admin: 06/22/21 12:50 Dose: 800 mg Documented by: Lidocaine HCl (Lidocaine 1% 50 Ml Mdv) 50 ml INJECT ONETIME PRN PRN Reason: Laceration repair Last Admin: 06/22/21 12:10 Dose: 50 ml Documented by: Methylergonovine Maleate (Methylergonovine 0.2 Mg/1 Ml Amp) 0.2 mg IM ASDIRECTED PRN PRN Reason: Post Hemorrhage Nalbuphine HCl (Nalbuphine 10 Mg/1 Ml Vial) 10 mg IVPUSH Q1H PRN PRN Reason: Pain (severe 7-10) Ondansetron HCl (Ondansetron 4 Mg/2 Ml Sdv) 4 mg IVPUSH Q4H PRN PRN Reason: Nausea/Vomiting Oxycodone HCl (Oxycodone 5 Mg Tab) 5 mg PO Q2H PRN PRN Reason: Pain (severe 7-10) Sodium Chloride (Sodium Chloride 0.9% 10 Ml Syringe) 10 ml FLUSH ASDIRECTED PRN PRN Reason: Keep Vein Open Sodium Chloride (Sodium Chloride 0.9% 2.5 Ml Syringe) 2.5 ml FLUSH ASDIRECTED PRN PRN Reason: Keep Vein Open Sodium Chloride (Sodium Chloride 0.9% 10 Ml Sdv) 10 ml IV ASDIRECTED PRN PRN Reason: IV Use Sterile Water (Water For Irrigation,Sterile 1,000 Ml Container) 1,000 ml IRR ASDIRECTED PRN PRN Reason: delivery Last Admin: 06/22/21 12:10 Dose: 1,000 ml Documented by: Terbutaline Sulfate (Terbutaline 1 Mg/Ml Sdv) 0.25 mg SUBCUT ASDIRECTED PRN PRN Reason: Tacysystole Witch Ana (Witch Ana Medicated Pads 40/Jar) 1 pad TOP ASDIRECTED PRN PRN Reason: comfort care Last Admin: 06/22/21 12:52 Dose: 1 tub Documented by: Discontinued Medications Acetaminophen (Acetaminophen 500 Mg Tab) 1,000 mg PO ONETIME ONE Stop: 06/22/21 08:11 Last Admin: 06/22/21 08:26 Dose: 1,000 mg Documented by: Butorphanol Tartrate (Butorphanol 1 Mg/Ml Sdv) 1 mg IVPUSH Q1H PRN PRN Reason: Pain (severe 7-10) Oxytocin/Sodium Chloride (Oxytocin 30 Unit/500 Ml-Ns) 30 unit in 500 mls @ 500 mls/hr IV TITRATE TERI Ropivacaine (Naropin 0.2%) Confirm Administered Dose 200 mls @ as directed .ROUTE .STK-MED ONE Stop: 06/21/21 22:00 Last Admin: 06/22/21 16:00 Dose: Not Given Documented by: Misoprostol (Misoprostol 200 Mcg Tab) 200 mcg PO ONETIME PRN PRN Reason: Post Hemorrhage - Infant Interaction Disposition, : [place] in Room with Family Interaction: Holding Infant Feeding: Breastfed Infant; Nursed Well Support Person: Significant Other - Recovery Exam Fundal Tone: Firm Fundal Level: 3 Fingerbreadths Below Umbilicus Fundal Placement: Midline Lochia Amount: Scant Lochia Color: Rubra/Red Perineum Description: Edematous Episiotomy/Laceration: Approximated Bladder Status: Voiding Urinary Elimination: Voided - Exam General: Alert, Oriented HEENT: EOMI Neck: Supple Lungs: Clear to Auscultation, Normal Respiratory Effort Cardiovascular: Regular Rate, Regular Rhythm, No Murmurs GI/Abdominal Exam: Soft, Non-Tender Extremities: Normal Inspection Skin: Warm, Dry Neurological: No New Focal Deficit Psy/Mental Status: Alert, Normal Affect, Normal Mood - Problem List Review Problem List Initiated/Reviewed/Updated: Yes - Assessment Assessment:: 20-year-old with spontaneous rupture of membranes delivered vaginally under epidural anesthesia. No new concerns. well. - Plan Plan:: - Routine post care - Tylenol/aspirin for pain - Can likely discharge today, pending serging machine operator approval <Annie Adorno - Last Filed: 06/23/21 10:06> - Patient Data Vital Signs - Most Recent: Last Vital Signs Temp 36.4 C 06/23/21 08:00 Pulse 80 06/23/21 08:00 Resp 18 06/23/21 08:00 BP 107/73 06/23/21 08:00 Pulse Ox 97 06/23/21 08:00 Lab Results - Last 24 Hours: Laboratory Results - last 24 hr 06/22/21 06/23/21 Range/Units 11:59 04:50 Hgb 11.7 L (12.0-16.0) g/dL Hct 35.7 L (36.0-46.0) % Cord ABG pH 7.174 L (7.18-7.38) Cord ABG Base Excess -9 (-10--2) Cord VBG pH 7.244 L (7.25-7.45) Cord VBG Base Excess -11 L (-10--2) Med Orders - Current: Current Medications Acetaminophen (Acetaminophen 325 Mg Tab) 650 mg PO Q4H PRN PRN Reason: Headache Acetaminophen (Acetaminophen 500 Mg Tab) 500 mg PO Q4H PRN PRN Reason: Pain (mild 1-3) Acetaminophen (Acetaminophen 500 Mg Tab) 1,000 mg PO Q4H PRN PRN Reason: Pain (mild 1-3) Benzocaine/Menthol (Benzocaine/Menthol 20%-0.5% [place] 78 Gm Cannister) 78 gm TOP ASDIRECTED PRN PRN Reason: Perineal Comfort Measure Last Admin: 06/22/21 12:52 Dose: 1 can Documented by: Bisacodyl (Bisacodyl 10 Mg Supp) 10 mg RECTAL ONETIME PRN PRN Reason: Constipation Carboprost Tromethamine (Carboprost Tromethamine 250 Mcg/1 Ml Amp) 250 mcg IM ASDIRECTED PRN PRN Reason: Post Hemorrhage Docusate Sodium (Docusate Sodium 100 Mg Cap) 100 mg PO Q12H PRN PRN Reason: Constipation Last Admin: 06/23/21 08:50 Dose: 100 mg Documented by: Emollient Ointment (Lanolin 100% Cream 7 Gm Tube) 0 gm TOP ASDIRECTED PRN PRN Reason: Sore Nipples Oxytocin/Sodium Chloride (Oxytocin 30 Unit/500 Ml-Ns) 30 unit in 500 mls @ 2 mls/hr IV TITRATE TERI; Protocol Last Titration: 06/22/21 12:00 Dose: 999 munits/min, 999 mls/hr Documented by: Lactated Ringer's (Ringers, Lactated) 1,000 mls @ 150 mls/hr IV ASDIRECTED TERI Last Admin: 06/22/21 10:10 Dose: 150 mls/hr Documented by: Tranexamic Acid 1,000 mg/ (Sodium Chloride) 110 mls @ 660 mls/hr IV ONETIME PRN PRN Reason: Bleeding Ibuprofen (Ibuprofen 400 Mg Tab) 400 mg PO Q4H PRN PRN Reason: Pain (mild 1-3) Ibuprofen (Ibuprofen 800 Mg Tab) 800 mg PO Q6H PRN PRN Reason: Pain (mild 1-3) Last Admin: 06/22/21 12:50 Dose: 800 mg Documented by: Lidocaine HCl (Lidocaine 1% 50 Ml Mdv) 50 ml INJECT ONETIME PRN PRN Reason: Laceration repair Last Admin: 06/22/21 12:10 Dose: 50 ml Documented by: Methylergonovine Maleate (Methylergonovine 0.2 Mg/1 Ml Amp) 0.2 mg IM ASDIRECTED PRN PRN Reason: Post Hemorrhage Nalbuphine HCl (Nalbuphine 10 Mg/1 Ml Vial) 10 mg IVPUSH Q1H PRN PRN Reason: Pain (severe 7-10) Ondansetron HCl (Ondansetron 4 Mg/2 Ml Sdv) 4 mg IVPUSH Q4H PRN PRN Reason: Nausea/Vomiting Oxycodone HCl (Oxycodone 5 Mg Tab) 5 mg PO Q2H PRN PRN Reason: Pain (severe 7-10) Sodium Chloride (Sodium Chloride 0.9% 10 Ml Syringe) 10 ml FLUSH ASDIRECTED PRN PRN Reason: Keep Vein Open Sodium Chloride (Sodium Chloride 0.9% 2.5 Ml Syringe) 2.5 ml FLUSH ASDIRECTED PRN PRN Reason: Keep Vein Open Sodium Chloride (Sodium Chloride 0.9% 10 Ml Sdv) 10 ml IV ASDIRECTED PRN PRN Reason: IV Use Sterile Water (Water For Irrigation,Sterile 1,000 Ml Container) 1,000 ml IRR ASDIRECTED PRN PRN Reason: delivery Last Admin: 06/22/21 12:10 Dose: 1,000 ml Documented by: Terbutaline Sulfate (Terbutaline 1 Mg/Ml Sdv) 0.25 mg SUBCUT ASDIRECTED PRN PRN Reason: Tacysystole Witch Ana (Witch Ana Medicated Pads 40/Jar) 1 pad TOP ASDIRECTED PRN PRN Reason: comfort care Last Admin: 06/22/21 12:52 Dose: 1 tub Documented by: Discontinued Medications Acetaminophen (Acetaminophen 500 Mg Tab) 1,000 mg PO ONETIME ONE Stop: 06/22/21 08:11 Last Admin: 06/22/21 08:26 Dose: 1,000 mg Documented by: Butorphanol Tartrate (Butorphanol 1 Mg/Ml Sdv) 1 mg IVPUSH Q1H PRN PRN Reason: Pain (severe 7-10) Oxytocin/Sodium Chloride (Oxytocin 30 Unit/500 Ml-Ns) 30 unit in 500 mls @ 500 mls/hr IV TITRATE TERI Ropivacaine (Naropin 0.2%) Confirm Administered Dose 200 mls @ as directed .ROUTE .STK-MED ONE Stop: 06/21/21 22:00 Last Admin: 06/22/21 16:00 Dose: Not Given Documented by: Misoprostol (Misoprostol 200 Mcg Tab) 200 mcg PO ONETIME PRN PRN Reason: Post Hemorrhage - Problem List & Annotations (1) Vaginal delivery SNOMED Code(s): 750405915 Code(s): O80 - ENCOUNTER FOR FULL-TERM UNCOMPLICATED DELIVERY Status: Acute Current Visit: Yes - Plan Plan:: I have reviewed and agree with the above. Plan for discharge home this afternoon if cleared by B[employer]iologist [employer]. Reviewed discharge instructions/precautions, all questions answered.
== END 2021-06-23 15:50 | disposition home or self-care (01) | DRG 807 ==
LOC: MW.OB 19:44 → MW.OBCHECK 19:44 → MW.OB 20:43 → OBSVTOIN 06-22 11:59 → MW.OB 06-22 14:30
PROVIDERS: ADMIT Obstetrics & Gynecology; ATTEND Obstetrics & Gynecology
PROC: 10E0XZZ Delivery of Products of Conception, External Approach (ICD-10-PCS; principal; 2021-06-22)
PROC: 0KQM0ZZ Repair Perineum Muscle, Open Approach (ICD-10-PCS; 2021-06-22)
PROC: 10907ZC Drainage of Amniotic Fluid, Therapeutic from Products of Conception, Via Natural or Artificial Opening (ICD-10-PCS; 2021-06-22)
PROC: 3E0R3BZ Introduction of Anesthetic Agent into Spinal Canal, Percutaneous Approach (ICD-10-PCS; 2021-06-22)
DX: O69.81X0 Labor and delivery complicated by cord around neck, without compression, not applicable or unspecified (principal); Z37.0 Single live birth; Z3A.38 38 weeks gestation of pregnancy; O70.1 Second degree perineal laceration during delivery; Z20.822 Contact with and (suspected) exposure to COVID-19
CPT/HCPCS: 01967; 36415; 51702; 59025; 59409; 82803; 85014; 85018; 85027; 86592; 86850; 86900; 86901; A9270-GY; J2001; J2590; J2795; J7120; U0002

== ENCOUNTER 2022-04-14 16:00 | Emergency (ER) | payer MEDICAID, OTHER | END 2022-04-14 18:20 | disposition home or self-care (01) | LOC: MW.ED 16:00 | DX: U07.1 COVID-19 (principal) | CPT/HCPCS: 99283 ==